=== PATIENT | female | born 1980 | race Two or more races ===

== ENCOUNTER 2021-05-09 05:49 | Day surgery (SDC) | payer OTHER ==
[~2021-05-09 05:49] MED LIST: SYNTHROID88 MCG PO
[2021-05-09] MEDS ORDERED: ULTRAM50 MG PO (07:21)
[2021-05-09] MEDS ORDERED: MIRALAX17 GM PO (07:21)
[2021-05-09] MEDS ORDERED: TYLENOL ARTHRI650 MG PO (07:21)
== END 2021-05-09 11:35 | disposition home or self-care (01) ==
LOC: CIR.AMB 05:49
PROVIDERS: ATTEND Surgery
DX: K42.9 Umbilical hernia without obstruction or gangrene (principal); K80.10 Calculus of gallbladder with chronic cholecystitis without obstruction; Z20.822 Contact with and (suspected) exposure to COVID-19